=== PATIENT | male | born 1970 | race Caucasian/White ===

== ENCOUNTER 2016-08-14 16:43 | Inpatient (IN) ==
[2016-08-14] MEDS ORDERED: Pantoprazole 40 MG VIAL IVP ONE (17:15)
[2016-08-14 17:44] LABS: Basophils % 0.3 %; Immature Granulocytes % 0.6 % (0-4); Segmented Neutrophils % 76.6 %
[2016-08-14 17:45] LABS: Basophils # 0.1 K/mcL (0.0-0.2); Eosinophils # 0.3 K/mcL (0.0-0.6); Hematocrit 19.4 % (37.5-50.1); Lymphocytes # 2.3 K/mcL (0.6-4.6); Lymphocytes % 15.2 %; Mean Corpuscular HGB Conc 28.4 g/dL (31.6-35.5); Mean Corpuscular Volume 67.1 fL (83.0-100.0); Mean Platelet Volume 9.5 fL (9.4-12.4); Monocytes # 0.8 K/mcL (0.0-1.3); Monocytes % 5.3 %; Neutrophils # 11.8 K/mcL (1.6-8.9); Platelet Count 463 K/mcL (140-400); Red Blood Count 2.89 M/mcL (4.19-5.50); Red Cell Distribution Width 19.8 % (11.5-14.5)
[2016-08-14 17:50] LABS: INR 1.6; Ionized Calcium 1.03 mmol/L (1.15-1.35)
[2016-08-14 17:51] LABS: Hemoglobin 5.5 g/dL (12.9-16.9)
[2016-08-14 17:52] LABS: Activated Partial Thrombo Time 29.9 Seconds (26.0-36.0)
[2016-08-14 17:59] LABS: BUN/Creatinine Ratio 7 (6-26); Blood Urea Nitrogen 6 mg/dL (8-26); Calcium 7.9 mg/dL (8.6-10.8); Carbon Dioxide 26 mEq/L (19-29); Chloride 96 mEq/L (98-109); Glucose 121 mg/dL (70-99); Osmolality,Calculated 281 (280-300); Sodium 136 mEq/L (136-145); eGFR For African Americans > 60 (> 60); eGFR For Non-African Americans > 60 (> 60)
[2016-08-14 18:00] LABS: Ethanol < 10 mg/dL (0-10)
[2016-08-14 18:10] LABS: Hypochromasia Present (Not Present)
[2016-08-14 18:11] LABS: Anisocytosis 2+ (Not Present); Microcytosis Present (Not Present)
--- NOTE | 2016-08-14 18:40 | Emergency Department Note ---
Disposition Clinical Impression: Blood loss anemia, Hypokalemia Disposition: Admitted As Inpatient General Adult HPI - General Chief complaint: ED Recheck/Abnormal Lab/Rx Stated complaint: abnormal labs Time Seen by Provider: 08/14/16 17:10 Source: patient Limitations: no limitations Nursing Notes Reviewed: Yes Vital Signs Reviewed: Yes - History of Present Illness HPI Narrative: Is a 46-year-old male with a history of alcoholism is here for abnormal labs. He sells primary care provider the perform some blood work which showed hypokalemia and anemia. The patient states he has had a gastrointestinal illness the last couple weeks he does drink heavily daily. He denies any nausea vomiting hematemesis. He cannot members had darker stools he might notice some blood per rectum in the past. Pain Scale: 0 Associated symptoms: Reports: malaise, other (Chronic back pain). Denies: confusion, chest pain, cough, diaphoresis, headaches, nausea/vomiting - Related Data Home Medications Medication Instructions Recorded Confirmed Albuterol Sulfate [Albuterol 2 puff IH Q4H PRN 08/14/16 08/14/16 Inhaler] Atorvastatin [Lipitor] 10 mg PO HS 08/14/16 08/14/16 Cefdinir [Omnicef] 300 mg PO BID 08/14/16 08/14/16 Clopidogrel [Plavix] 75 mg PO DAILY 08/14/16 08/14/16 Cyanocobalamin (Vitamin B-12) 500 mcg PO DAILY 08/14/16 08/14/16 [Vitamin B-12] Folic Acid [Folic Acid] 1 mg PO DAILY 08/14/16 08/14/16 Gabapentin [Neurontin] 200 mg PO BID 08/14/16 08/14/16 Guaifenesin [Mucus Relief] 400 mg PO TID PRN 08/14/16 08/14/16 Multivitamin [Multi-Day Vitamins] 1 each PO DAILY 08/14/16 08/14/16 Polyethylene Glycol 3350 [MiraLAX] 17 gm PO DAILY 08/14/16 08/14/16 Potassium Chloride [K-Tab ER] 20 meq PO BID 08/14/16 08/14/16 Allergies Allergy/AdvReac Type Severity Reaction Status Date / Time No Known Allergies Allergy Verified 08/14/16 16:45 All systems ED: reviewed and negative except as stated. Constitutional: Reports: weakness. Denies: fever, chills Cardiovascular: Denies: chest pain, palpitations Past Medical History - Past Medical History Source: patient, old records reviewed, nursing notes reviewed Medical history: Reports: CVA, hypertension Psychiatric history: Reports: no psych history - Social History Smoking Status: Current every day smoker Smokeless Tobacco Status: No Alcohol use: Reports: heavy Drug use: Reports: none Physical Exam - General Limitations: no limitations General appearance: alert, in no apparent distress, other (pale) - Head Head exam: atraumatic, normocephalic, normal inspection - Eye Eye exam: Present: other (pale conjunctivae ) - Expanded Eye Exam Pupils: Left: reactive - ENT ENT exam: normal exam, normal oropharynx, mucous membranes moist - Expanded ENT Exam External ear exam: Present: normal external inspection Mouth exam: Present: normal external inspection Teeth exam: Present: normal inspection Throat exam: Present: normal inspection - Neck Neck exam: Present: normal inspection, full ROM, trachea midline - Chest Chest inspection: Present: normal inspection, symmetric chest wall rise - Respiratory Respiratory exam: Present: normal lung sounds bilaterally - Cardiovascular Cardiovascular exam: Present: regular rate, normal rhythm, normal heart sounds - Abdominal Exam Abdominal exam: Present: soft, Non-Tender, distention - Rectal Exam Rectal exam: Present: normal inspection, normal rectal tone, other (Stool was sent for guaiac but there really was not any stool to obtain just scant amount of yellow feculent material). Absent: black stool, bloody stool, fecal impaction, hemorrhoids, mass, tenderness - Extremities Exam Extremities exam: Present: normal inspection, full ROM. Absent: tenderness, pedal edema - Expanded Upper Extremity Exam Shoulder exam: Present: normal inspection, full ROM Arm exam: Present: normal inspection, full ROM Elbow exam: Present: normal inspection, full ROM Forearm/Wrist exam: Present: normal inspection, full ROM Hand exam: Present: normal inspection, full ROM Vascular exam: Normal: capillary refill, radial pulse - Expanded Lower Extremity Exam Hip/Pelvis exam: Present: normal inspection, full ROM Upper leg exam: Present: normal inspection, full ROM Knee exam: Present: normal inspection, full ROM Lower leg exam: Present: normal inspection, full ROM Ankle exam: Present: normal inspection, full ROM Foot/toe exam: Present: normal inspection, full ROM Neurovascular/Tendon exam: Absent: motor deficit, sensory deficit, tendon deficit - Back Exam Back exam: Present: normal inspection, full ROM. Absent: tenderness - Neurological Exam Neurological exam: Present: alert, oriented X3 - Expanded Neurological Exam Patient oriented to: Present: person, place, time Coma Scale Eye Opening: Spontaneous Coma Scale Motor Response: Obeys Commands Coma Scale Verbal Response: Oriented Coma Scale Total: 15 - Psychiatric Psychiatric exam: Present: normal affect, normal mood - Skin Skin exam: Present: warm, dry, intact, normal color Course Vital Signs Temperature 99.5 F 08/14/16 16:45 Pulse Rate 110 08/14/16 16:45 Respiratory Rate 18 08/14/16 16:45 Blood Pressure 125/79 08/14/16 16:45 O2 Sat by Pulse Oximetry 100 08/14/16 16:45 Temperature 98.9 F 08/14/16 19:17 Pulse Rate 101 08/14/16 19:45 Respiratory Rate 16 08/14/16 19:45 Blood Pressure 104/64 08/14/16 19:45 O2 Sat by Pulse Oximetry 100 08/14/16 19:45 Oxygen Delivery Oxygen Delivery Room Air Medical Decision Making - Lab Data Result diagrams: 08/14/16 17:28 08/14/16 17:28 Lab Results 08/14/16 08/14/16 08/14/16 Range/Units 17:28 17:28 17:28 WBC 15.4 H (4.3-11.1) K/mcL RBC 2.89 L (4.19-5.50) M/mcL Hgb 5.5 L* (12.9-16.9) g/dL Hct 19.4 L (37.5-50.1) % MCV 67.1 L (83.0-100.0) fL MCH 19.0 L (28.0-33.3) pg MCHC 28.4 L (31.6-35.5) g/dL RDW 19.8 H (11.5-14.5) % Plt Count 463 H (140-400) K/mcL MPV 9.5 (9.4-12.4) fL Immature Gran % 0.6 (0-4) % Seg Neutrophils % 76.6 % Lymphocytes % 15.2 % Monocytes % 5.3 % Eosinophils % 2.0 % Basophils % 0.3 % Neutrophils # 11.8 H (1.6-8.9) K/mcL Lymphocytes # 2.3 (0.6-4.6) K/mcL Monocytes # 0.8 (0.0-1.3) K/mcL Eosinophils # 0.3 (0.0-0.6) K/mcL Basophils # 0.1 (0.0-0.2) K/mcL Platelet Estimate Slight increase H (Normal) Hypochromasia Present A (Not Present) Anisocytosis 2+ A (Not Present) Microcytosis Present A (Not Present) PT (9.4-12.1) Seconds INR APTT (26.0-36.0) Seconds Sodium 136 (136-145) mEq/L Potassium 3.0 L (3.5-4.5) mEq/L Chloride 96 L (98-109) mEq/L Carbon Dioxide 26 (19-29) mEq/L BUN 6 L (8-26) mg/dL Creatinine 0.81 (0.72-1.25) mg/dL Est GFR ( Amer) > 60 (> 60) Est GFR (Non-Af Amer) > 60 (> 60) BUN/Creatinine Ratio 7 (6-26) Glucose 121 H (70-99) mg/dL Calculated Osmolality 281 (280-300) Calcium 7.9 L (8.6-10.8) mg/dL Ionized Calcium 1.03 L (1.15-1.35) mmol/L Magnesium (1.6-2.6) mg/dL Ethyl Alcohol < 10 (0-10) mg/dL Blood Type B POSITIVE Antibody Screen NEGATIVE Crossmatch See Detail 08/14/16 08/14/16 Range/Units 17:28 17:28 WBC (4.3-11.1) K/mcL RBC (4.19-5.50) M/mcL Hgb (12.9-16.9) g/dL Hct (37.5-50.1) % MCV (83.0-100.0) fL MCH (28.0-33.3) pg MCHC (31.6-35.5) g/dL RDW (11.5-14.5) % Plt Count (140-400) K/mcL MPV (9.4-12.4) fL Immature Gran % (0-4) % Seg Neutrophils % % Lymphocytes % % Monocytes % % Eosinophils % % Basophils % % Neutrophils # (1.6-8.9) K/mcL Lymphocytes # (0.6-4.6) K/mcL Monocytes # (0.0-1.3) K/mcL Eosinophils # (0.0-0.6) K/mcL Basophils # (0.0-0.2) K/mcL Platelet Estimate (Normal) Hypochromasia (Not Present) Anisocytosis (Not Present) Microcytosis (Not Present) PT 17.0 H (9.4-12.1) Seconds INR 1.6 APTT 29.9 (26.0-36.0) Seconds Sodium (136-145) mEq/L Potassium (3.5-4.5) mEq/L Chloride (98-109) mEq/L Carbon Dioxide (19-29) mEq/L BUN (8-26) mg/dL Creatinine (0.72-1.25) mg/dL Est GFR ( Amer) (> 60) Est GFR (Non-Af Amer) (> 60) BUN/Creatinine Ratio (6-26) Glucose (70-99) mg/dL Calculated Osmolality (280-300) Calcium (8.6-10.8) mg/dL Ionized Calcium (1.15-1.35) mmol/L Magnesium 1.6 (1.6-2.6) mg/dL Ethyl Alcohol (0-10) mg/dL Blood Type Antibody Screen Crossmatch Critical Care Time Critical Care Time: Yes Total Critical Care Time: 40 Attestation: Critical care performed: Time is exclusive of separately billable procedures. Time includes: direct patient care, patient reassessment, coordination of patient care, interpretation of data (laboratory data, radiology data, and respiratory data), review of patient's medical records, medical consultation and documentation of patient care. Procedures included in critical care time: Procedures excluded from critical care time:
[2016-08-14] MEDS ORDERED: 0.9 % Sodium Chloride 500 ML ONE ×2 (18:44→23:07)
[2016-08-14] MEDS ORDERED: *HR* HYDROcodone/Acet 5/325 mg TABLET PO ONE (18:54)
--- NOTE | 2016-08-14 23:11 | Internal Med History&Physical ---
<Sobia Delvalle - Last Filed: 08/15/16 00:28> Date of Encounter: 08/15/16 Time of Encounter: 22:30 Assessment and Plan (1) Blood loss anemia Current visit: Yes Status: Acute upon arrival to ED, his Hg was 5.5. Two units of blood ordered. Stool occult blood was negative, indicating his blood loss is likely chronic. Etiology unclear at this time. Consider esophageal varices, GI bleed as a potential cause in context of patient's chronic alcoholism. monitor CBC Q6HR. check folate, B12 levels, iron profile-pending Lipase pending CHeck cbc,cmp,phosphorous, TSH with morning labs. Consider GI consult for possible EGD/colonoscopy. NPO except meds after midnight. 40mg IV protonix daily. zofran prn for nausea. (2) Hypokalemia Current visit: Yes Status: Acute patient's potassium was 3.0 Patient received 40 mEq of oral potassium in ED Will give another 40 mEq IV potassium now. continue to monitor with repeat bmp with morning labs. (3) Alcohol abuse Current visit: Yes Status: Chronic patient has a history of alcohol abuse for about the past 20 years. He states that he drinks one six pack per night on average, but has been drinking less for the past few weeks because of his abdominal problems. Folate, thiamine supplementation. Patient counseled on importance of alcohol cessation. Continue to monitor. (4) HLD (hyperlipidemia) Current visit: Yes Status: Chronic hold plavix Continue statin Qualifiers: Hyperlipidemia type: unspecified Qualified Code(s): E78.5 - Hyperlipidemia , unspecified (5) DVT prophylaxis Current visit: Yes Status: Acute EPCDs Internal Medicine - H&P: HPI Chief complaint: abnormal labs History of present illness: PCP: Carrie Brooks. Mr. El is a 46 year old male with PMHx of alcoholism, CVA Hx, HTN, DJD, HLD. Patient states that he went to his PCP office today because of stomach problems that he has been having for the past three weeks. He reports having constipation, lower abdominal pain, severe diarrhea, neusea with vomiting about once every few days, decreased appetite. He states that there were a couple of times he may have had blood in his stool and has noticed blood in his stool in the past. He denies hematemesis. He reports chills, denies fever, denies hematuria. He reports some knee pain. His doctor ordered some blood work. When his doctor received the blood work, he was instructed to come to the emergency department. His Hg was 5.5 and potassium was 3. Two units of blood were ordered. Known history of alcoholism. See below. Social Hx: Lives at home with his girlfriend. He has no children. He does not have family in the area and does not have much contact with his family. patient has a known history of alcoholism for about twenty ears. On average, he drinks about a six pack of beer per day. The past few weeks he has been drinking less due to his abdominal problems. His last drink was the night before coming to the Ed, and he drank about half a can of beer at that time. Patient is a current smoker and has been smoking for about twenty five years, 1-3 paks per day. He occasionally takes a vicotin for his knee pain, and he gets that from his friends. Surgical Hx: has had surgery on his left elbow about a year and a half ago at [place]. Family Hx: dad had cancer (does not know what kind) and in his 70s. Mother is alive, has diabetes. He has one brother and two sisters, and does not know if they have any medical problems. Past Med Surg Social Fam HX - Past Medical History Medical history: CVA, hypertension Psychiatric history: no psych history - Social History Smoking Status: Current every day smoker Smokeless Tobacco Status: No Alcohol use: heavy Drug use: none Internal Medicine - H&P: Meds Albuterol Sulfate [Albuterol Inhaler] 2 puff IH Q4H PRN 08/14/16 [History] Atorvastatin [Lipitor] 10 mg PO HS 08/14/16 [History] Cefdinir [Omnicef] 300 mg PO BID 08/14/16 [History] Clopidogrel [Plavix] 75 mg PO DAILY 08/14/16 [History] Cyanocobalamin (Vitamin B-12) [Vitamin B-12] 500 mcg PO DAILY 08/14/16 [History] Folic Acid [Folic Acid] 1 mg PO DAILY 08/14/16 [History] Gabapentin [Neurontin] 200 mg PO BID 08/14/16 [History] Guaifenesin [Mucus Relief] 400 mg PO TID PRN 08/14/16 [History] Multivitamin [Multi-Day Vitamins] 1 each PO DAILY 08/14/16 [History] Polyethylene Glycol 3350 [MiraLAX] 17 gm PO DAILY 08/14/16 [History] Potassium Chloride [K-Tab ER] 20 meq PO BID 08/14/16 [History] Allergies No Known Allergies Allergy (Verified 08/14/16 16:45) All Systems PM: A 10-system review of systems was performed and is negative for pertinent findings except as documented above in the HPI. - Constitutional Constitutional: anorexia, chills, lethargy - EENT Eyes: no change in vision - Cardiovascular Cardiovascular ROS IM: no chest pain - Gastrointestinal Gastrointestinal: abdominal pain, constipation, cramping, diarrhea, melena, no coffee ground emesis - Genitourinary Genitourinary ROS male: no difficulty urinating, no hematuria - Neurological Neurological ROS: no loss of vision - Constitutional Vitals: Temp Pulse Resp BP Pulse Ox 98.1 F 90 16 102/63 96 08/14/16 22:45 08/14/16 22:45 08/14/16 22:45 08/14/16 22:45 08/14/16 22:45 General appearance: Present: A&O X 3, pleasant, answers questions appropriately - Head Head exam: Present: atraumatic, normocephalic - Neck Neck exam general surgery: Present: supple, trachea midline - Respiratory Respiratory exam: Present: rhonchi, wheezes - Cardiovascular Cardiovascular exam: Present: RRR, +S1, +S2 - GI/Abdominal GI/Abdominal exam: Present: distended, normal bowel sounds, tenderness ( tenderness in lower abdomen. ) - Extremities Exam Extremities exam: Absent: cyanotic, pedal edema Additional comments: no cyanosis, edema, or clubbing noted. patient's fingernails have dirt under them. - Psychiatric Psychiatric exam: Present: flat affect Internal Med - H&P Results - Labs CBC & Chem 7: 08/14/16 17:28 08/14/16 17:28 <Khloe Joseph - Last Filed: 08/15/16 13:04> Date of Encounter: 08/14/16 Internal Medicine - H&P: HPI History of present illness: Mr. El is a 46 year old male All Systems PM: A 10-system review of systems was performed and is negative for pertinent findings except as documented above in the HPI. - Constitutional Vitals: Temp Pulse Resp BP Pulse Ox 98.7 F 81 16 101/71 98 08/15/16 12:08 08/15/16 12:08 08/15/16 12:08 08/15/16 12:08 08/15/16 12:08 Internal Med - H&P Results - Labs CBC & Chem 7: 08/15/16 05:27 08/15/16 01:08 Labs: Short CBC 08/15/16 08/15/16 Range/Units 01:08 05:27 WBC 12.1 H 11.0 (4.3-11.1) K/mcL Hgb 5.8 L* 6.3 L (12.9-16.9) g/dL Hct 19.9 L 21.4 L (37.5-50.1) % Plt Count 381 360 (140-400) K/mcL Neutrophils # 8.8 7.9 (1.6-8.9) K/mcL BMP 08/15/16 01:08 Sodium 135 L Potassium 2.6 L Chloride 97 L Carbon Dioxide 26 BUN 6 L Creatinine 0.83 Glucose 106 H Calcium 7.3 L Liver Function 08/15/16 Range/Units 01:08 Total Bilirubin 0.9 (0.2-1.2) mg/dL AST 34 (5-34) Units/L ALT 17 (0-55) Units/L Alkaline Phosphatase 206 H (38-126) Units/L Albumin 1.7 L (3.5-5.0) g/dL - Attending Attestation I examined this patient and my medical decision-making was reviewed with the [employer]/PA/Advanced Practice Nurse/Resident Physician. I agree with the documented findings, disposition and treatment plan as described except to the extent set forth below. I have personally evaluated the pt and discussed with recruitment internship/resident. Pt denies melena / hematochezia. Reports abdominal distension for few weeks. Intermittent leg swelling. Was noted to be anemic based on the labs from his PCP. Microcytic anemia - iron deficiency and possible anemia of chronic disease. Fecal occult blood is negative. Pt had 2 units of PRBC ordered. If the H&H do not increment appropriately, will consider inpatient w/u for anemia - with GI consult and possible upper and lower GI endoscopies. If the H&H increment appropriately and remains stable - can have outpatient w/u. Will cover with IV lasix during PRBC transfusions. Abdominal ultrasound to evaluate for ascites and cirrhosis of liver (Clinically pt seems to have ascites). [facility] protocol.
[2016-08-14] MEDS ORDERED: GuaiFENesin Liq 200 MG/10 ML UDC PO PRN (23:18)
[2016-08-14] MEDS ORDERED: Potassium Chloride Elixir 20 MEQ/15 ML UDC PO ONE (23:25)
[2016-08-14] MEDS ORDERED: Ondansetron 4 MG/2 ML VIAL IVP PRN (23:27)
[2016-08-14] MEDS ORDERED: Acetaminophen 325 MG TABLET PO PRN (23:27)
[2016-08-14] MEDS ORDERED: Naloxone 0.4 MG/ML INJ IVP PRN (23:27)
[2016-08-14] MEDS: Thiamine (B-1) 100 MG TABLET PO SCH (23:36)
[2016-08-14] MEDS: Folic Acid 1 MG TABLET PO SCH (23:36)
[2016-08-15] MEDS ORDERED: *HR* LORazepam 2 MG/ML VIAL IVP PRN (00:14)
[2016-08-15] MEDS ORDERED: Levofloxacin 500 MG/100 ML 500 MG/100 ML BAG IVPB SCH (01:00)
[2016-08-15 01:08] LABS: % Iron Saturation 7 % (20-55); Iron 25 mcg/dL (65-175); Transferrin 240 mg/dL (174-364)
[2016-08-15 01:41] LABS: Folate 16.1 ng/mL (7.0-31.4)
[2016-08-15 01:42] LABS: Vitamin B12 > 2000 pg/mL (213-816)
[2016-08-15 02:43] LABS: Basophils # 0.1 K/mcL (0.0-0.2); Basophils % 0.5 %; Eosinophils # 0.4 K/mcL (0.0-0.6); Hematocrit 19.9 % (37.5-50.1); Immature Granulocytes % 0.4 % (0-4); Lymphocytes # 2.1 K/mcL (0.6-4.6); Lymphocytes % 17.4 %; Mean Corpuscular HGB Conc 29.1 g/dL (31.6-35.5); Mean Corpuscular Hemoglobin 20.4 pg (28.0-33.3); Mean Corpuscular Volume 70.1 fL (83.0-100.0); Mean Platelet Volume 10.2 fL (9.4-12.4); Monocytes # 0.7 K/mcL (0.0-1.3); Monocytes % 6.1 %; Neutrophils # 8.8 K/mcL (1.6-8.9); Nucleated Red Blood Cells 0.2 /100 WBC (0); Platelet Count 381 K/mcL (140-400); Red Blood Count 2.84 M/mcL (4.19-5.50); Red Cell Distribution Width 21.3 % (11.5-14.5); Segmented Neutrophils % 72.6 %
[2016-08-15 02:46] LABS: Hemoglobin 5.8 g/dL (12.9-16.9)
[2016-08-15 02:51] LABS: Alanine Aminotransferase 17 Units/L (0-55); Albumin/Globulin Ratio 0.4 (1.1-2.2); Alkaline Phosphatase 206 Units/L (38-126); Aspartate Amino Transferase 34 Units/L (5-34); BUN/Creatinine Ratio 7 (6-26); Bilirubin,Total 0.9 mg/dL (0.2-1.2); Blood Urea Nitrogen 6 mg/dL (8-26); Calcium 7.3 mg/dL (8.6-10.8); Carbon Dioxide 26 mEq/L (19-29); Chloride 97 mEq/L (98-109); Glucose 106 mg/dL (70-99); Osmolality,Calculated 278 (280-300); Phosphorous 3.6 mg/dL (2.3-4.7); Potassium 2.6 mEq/L (3.5-4.5); Sodium 135 mEq/L (136-145); Total Protein 5.7 g/dL (6.0-8.3); eGFR For African Americans > 60 (> 60); eGFR For Non-African Americans > 60 (> 60)
[2016-08-15 03:05] LABS: Albumin 1.7 g/dL (3.5-5.0)
[2016-08-15 03:29] LABS: Anisocytosis 2+ (Not Present); Hypochromasia Present (Not Present)
[2016-08-15 03:30] LABS: Polychromasia 1+ (Not Present)
[2016-08-15 05:42] LABS: Basophils % 0.4 %; Eosinophils # 0.3 K/mcL (0.0-0.6); Hematocrit 21.4 % (37.5-50.1); Hemoglobin 6.3 g/dL (12.9-16.9); Immature Granulocytes % 0.5 % (0-4); Lymphocytes % 18.5 %; Mean Corpuscular HGB Conc 29.4 g/dL (31.6-35.5); Mean Corpuscular Hemoglobin 20.6 pg (28.0-33.3); Mean Corpuscular Volume 69.9 fL (83.0-100.0); Mean Platelet Volume 9.5 fL (9.4-12.4); Monocytes # 0.6 K/mcL (0.0-1.3); Monocytes % 5.5 %; Neutrophils # 7.9 K/mcL (1.6-8.9); Platelet Count 360 K/mcL (140-400); Red Blood Count 3.06 M/mcL (4.19-5.50); Red Cell Distribution Width 20.7 % (11.5-14.5); Segmented Neutrophils % 72.1 %
[2016-08-15] MEDS ORDERED: Potassium Chloride 40 MEQ, Lidocaine 1% 2 ML in D5% in Water 500 ML IVPB ONE (09:00)
[2016-08-15] MEDS: Vitamin B Complex/Vit C/Vit E 1 EACH TABLET PO SCH (09:11)
[2016-08-15] MEDS: Folic Acid 1 MG TABLET PO SCH (09:11)
[2016-08-15] MEDS: Thiamine (B-1) 100 MG TABLET PO SCH (09:11)
[2016-08-15] MEDS: Gabapentin 100 MG CAPSULE PO SCH ×2 (09:12→20:18)
[2016-08-15] MEDS: Pantoprazole 40 MG VIAL IVP SCH (09:12)
[2016-08-15] MEDS: Nicotine 21 MG PATCH.TD24 TD SCH ×2 (09:12→17:11)
[2016-08-15] MEDS: Iron Sucrose Complex 200 MG in 0.9 % Sodium Chloride 100 ML IVPB SCH (10:04)
[2016-08-15] MEDS ORDERED: 0.9 % Sodium Chloride 500 ML ONE (10:39)
--- NOTE | 2016-08-15 11:19 | Event Note ---
Date of Encounter: 08/15/16 Time of Encounter: 10:45 Spoke with attending, reviewed history and labs. Plan for EGD and colonoscopy tomorrow. Clear liquid diet today, no red or purple. NPO at midnight. If unable tolerate NuLytely please use MiraLAX prep. If not clear by 6 AM, give 2 tap water enemas. Full consult tomorrow.
[2016-08-15] MEDS ORDERED: Furosemide 20 MG/2 ML VIAL IVP ONE (12:55)
[2016-08-15] MEDS: Sennosides/Docusate Sodium TABLET PO SCH ×2 (15:00→20:18)
--- NOTE | 2016-08-15 15:52 | Internal Med Progress Note ---
Date of Encounter: 08/15/16 Time of Encounter: 15:50 - Assessment and plan (1) Anemia Current Visit: Yes Status: Acute Assessment and plan: upon arrival to ED, his Hg was 5.5. last hb on 10/2015 was 14, s/p Two units of prbc , now is 6.3. he gives h/o bloody diarrhea 3 weeks ago that has resolved. Stool occult blood now is negative,low MCV, low iron and tsat. b12 and folate ok, TSH normal. will start iron sucrose for iron deficiency, r/o GI bleed, denies previous EGD , denies h/o hematemesis or thu, will undergo EGD/colon tomm. GI has been consulted NPO except meds after midnight. 40mg IV protonix daily. zofran prn for nausea Qualifiers: Anemia type: iron deficiency Qualified Code(s): D50.0 - Iron deficiency anemia secondary to blood loss (chronic) (2) DVT prophylaxis Current Visit: Yes Status: Acute (3) Hypokalemia Current Visit: Yes Status: Acute Assessment and plan: will supplement with IV and oral potassium. Recheck today. (4) Alcohol abuse Current Visit: Yes Status: Chronic Assessment and plan: We will watch for alcohol withdrawal, currently does not have any signs of withdrawal at this time. Under [facility] protocol. (5) HLD (hyperlipidemia) Current Visit: Yes Status: Chronic Qualifiers: Hyperlipidemia type: unspecified Qualified Code(s): E78.5 - Hyperlipidemia , unspecified - Time Spent With Patient 25 - 35 minutes - Subjective Interval history: Patient admitted for severe anemia, status post transfusion 2 units of PRBC. Seen at the bedside this morning, denies any abdominal pain, nausea or vomiting , denies any hematemesis or melena. Chronic alcoholic, has never seen a GI doctor, never had EGD or colonoscopy in the past. Reports history of blood in the stool with diarrhea 3 weeks ago when he was treated outside with supportive treatment ( anti emetics along with Imodium, no antibiotics) following which he developed constipation. GI has been consulted. Has no signs of withdrawal. - Constitutional Vitals: Temp Pulse Resp BP Pulse Ox 98.6 F 84 16 118/78 97 08/15/16 14:55 08/15/16 14:55 08/15/16 14:55 08/15/16 14:55 08/15/16 14:55 General appearance: Present: A&O X 3, pleasant, answers questions appropriately Exam: General appearance: Present: A&O X 3, pleasant, answers questions appropriately - Head Head exam: Present: atraumatic, normocephalic - Neck Neck exam general surgery: Present: supple, trachea midline - Respiratory Respiratory exam: Present: rhonchi, wheezes - Cardiovascular Cardiovascular exam: Present: RRR, +S1, +S2 - GI/Abdominal GI/Abdominal exam: Present: distended, normal bowel sounds, non tender. - Extremities Exam Extremities exam: Absent: cyanotic, pedal edema Additional comments: no cyanosis, edema, or clubbing noted. patient's fingernails have dirt under them. Internal Medicine: Result - Labs CBC & Chem 7: 08/15/16 05:27 08/15/16 01:08 Labs: Short CBC 08/15/16 08/15/16 Range/Units 01:08 05:27 WBC 12.1 H 11.0 (4.3-11.1) K/mcL Hgb 5.8 L* 6.3 L (12.9-16.9) g/dL Hct 19.9 L 21.4 L (37.5-50.1) % Plt Count 381 360 (140-400) K/mcL Neutrophils # 8.8 7.9 (1.6-8.9) K/mcL BMP 08/15/16 01:08 Sodium 135 L Potassium 2.6 L Chloride 97 L Carbon Dioxide 26 BUN 6 L Creatinine 0.83 Glucose 106 H Calcium 7.3 L Liver Function 08/15/16 Range/Units 01:08 Total Bilirubin 0.9 (0.2-1.2) mg/dL AST 34 (5-34) Units/L ALT 17 (0-55) Units/L Alkaline Phosphatase 206 H (38-126) Units/L Albumin 1.7 L (3.5-5.0) g/dL - ABG Interpretation ABG results: PT/INR, D-dimer PT 17.0 Seconds (9.4-12.1) H 08/14/16 17:28 - VTE Documentation of Mechanical Device: Intermittent pneumatic compression device Consult Discharge Plan - Plan Referrals: Estella Arteaga, MACHINE SANDER [Primary Care Provider] -
[2016-08-15] MEDS ORDERED: SODIUM CHLORIDE/NAHCO3/KCL/PEG 4,000 ML SOLN.RECON PO ONE (17:00)
[2016-08-15] MEDS: Potassium Chloride Elixir 20 MEQ/15 ML UDC PO SCH ×2 (17:35→22:58)
[2016-08-15 18:49] LABS: Basophils % 0.3 %; Eosinophils # 0.3 K/mcL (0.0-0.6); Hematocrit 28.5 % (37.5-50.1); Immature Granulocytes % 0.4 % (0-4); Lymphocytes % 14.9 %; Mean Corpuscular HGB Conc 30.9 g/dL (31.6-35.5); Mean Corpuscular Hemoglobin 22.1 pg (28.0-33.3); Mean Corpuscular Volume 71.6 fL (83.0-100.0); Mean Platelet Volume 9.5 fL (9.4-12.4); Monocytes # 0.6 K/mcL (0.0-1.3); Monocytes % 4.5 %; Neutrophils # 10.3 K/mcL (1.6-8.9); Platelet Count 390 K/mcL (140-400); Red Blood Count 3.98 M/mcL (4.19-5.50); Red Cell Distribution Width 20.4 % (11.5-14.5); Segmented Neutrophils % 77.9 %
[2016-08-15 18:50] LABS: Hemoglobin 8.8 g/dL (12.9-16.9)
[2016-08-15 18:59] LABS: BUN/Creatinine Ratio 5 (6-26); Blood Urea Nitrogen 4 mg/dL (8-26); Calcium 7.4 mg/dL (8.6-10.8); Carbon Dioxide 24 mEq/L (19-29); Chloride 95 mEq/L (98-109); Glucose 110 mg/dL (70-99); Osmolality,Calculated 270 (280-300); Potassium 3.3 mEq/L (3.5-4.5); Sodium 131 mEq/L (136-145); eGFR For African Americans > 60 (> 60); eGFR For Non-African Americans > 60 (> 60)
[2016-08-16 06:15] LABS: BUN/Creatinine Ratio 6 (6-26); Calcium 7.8 mg/dL (8.6-10.8); Carbon Dioxide 26 mEq/L (19-29); Chloride 96 mEq/L (98-109); Glucose 94 mg/dL (70-99); Osmolality,Calculated 271 (280-300); Potassium 3.5 mEq/L (3.5-4.5); Sodium 132 mEq/L (136-145); eGFR For African Americans > 60 (> 60); eGFR For Non-African Americans > 60 (> 60)
[2016-08-16 06:16] LABS: Blood Urea Nitrogen 4 mg/dL (8-26)
[2016-08-16 08:37] LABS: Basophils # 0.1 K/mcL (0.0-0.2); Basophils % 0.5 %; Eosinophils # 0.5 K/mcL (0.0-0.6); Eosinophils % 3.1 %; Hematocrit 30.1 % (37.5-50.1); Hemoglobin 9.2 g/dL (12.9-16.9); Immature Granulocytes % 0.4 % (0-4); Lymphocytes # 2.1 K/mcL (0.6-4.6); Lymphocytes % 13.6 %; Mean Corpuscular HGB Conc 30.6 g/dL (31.6-35.5); Mean Corpuscular Hemoglobin 22.1 pg (28.0-33.3); Mean Corpuscular Volume 72.4 fL (83.0-100.0); Mean Platelet Volume 9.8 fL (9.4-12.4); Monocytes # 0.7 K/mcL (0.0-1.3); Monocytes % 4.6 %; Neutrophils # 11.9 K/mcL (1.6-8.9); Platelet Count 399 K/mcL (140-400); Red Blood Count 4.16 M/mcL (4.19-5.50); Segmented Neutrophils % 77.8 %
--- NOTE | 2016-08-16 11:37 | Gastroenterology Consult Note ---
<Cam Conti - Last Filed: 08/16/16 11:34> Date of Encounter: 08/16/16 Time of Encounter: 11:15 - Assessment and plan (1) Anemia Current Visit: Yes Status: Acute Assessment and plan: Continue to monitor CBC and transfuse PRBC as needed. Plan for EGD and colonoscopy today. Qualifiers: Anemia type: iron deficiency Qualified Code(s): D50.0 - Iron deficiency anemia secondary to blood loss (chronic) (2) Alcohol abuse Current Visit: Yes Status: Chronic Assessment and plan: Pt drinking a six pack of beer per day. Abdomen distended, consulted IR for paracentesis, send fluid for cell studies and cytology. Complete liver work up and RUQ US to r/o cirrhosis. LFTs are WNL. - Time Spent With Patient Total time spent is greater than 50% in coordination of care (as documented) at patient's floor/unit and/or counseling patient: GI History of Present Illness - Data of Consult Patient: new to practice Consult date: 08/16/16 Requesting Physician: Agustina Gandara - Consult Narrative Reason for consult: Anemia, chronic alcoholic History of present illness: Mr. El is a 46 year old male with PMHX of CVA, HTN, HLD, alcoholism who came to the ED after presenting to his PCP office with c/o constipation, diarrhea, lower abdominal pain, nausea, and vomiting. He also reports BRBPR about 3 weeks ago. He was having diarrhea 3 weeks ago, and after taking Imodium he developed constipation. His PCP ordered labs which revealed Hgb 5.4, and he was instructed to come to the ED. He has received 4 units PRBC and Hgb yesterday was 8.8. FOBT was negative. He has a history of alcohol abuse for about 20 years. He is drinking a six pack of beer per day. His LFTs are WNL. We were consulted due to anemia. Paracentesis completed this AM, and pt states he feels "much better". Procedures: None NSAIDs: None Anticoagulation: Plavix Past Med Surg Social Fam HX - Past Medical History Medical history: CVA, hypertension Psychiatric history: no psych history - Social History Smoking Status: Current every day smoker Smokeless Tobacco Status: No Alcohol use: heavy Drug use: none - Gastrointestinal Gastrointestinal: Present: as per HPI - Constitutional Constitutional: as per HPI - EENT Eyes: as per HPI Ears: Present: as per HPI Nose, mouth and throat: Present: as per HPI - Cardiovascular Cardiovascular ROS: Present: as per HPI - Respiratory Respiratory IM: Present: as per HPI - Genitourinary Genitourinary: Absent: change in color, Urinary frequency - Neurological ROS Neurological GI: Present: as per HPI - Hematologic/Lymphatic Hematologic/Lymphatic pediatric: Present: as per HPI - Musculoskeletal Musculoskeletal ROS GI: Present: as per HPI - Integumentary Integumentary GI: Present: as per HPI - Psychiatric ROS Psychiatric GI: Present: as per HPI - Endocrine Endocrine IM: Present: as per HPI - Constitutional Vitals: Temp Pulse Resp BP Pulse Ox 98.3 F 73 16 116/76 97 08/16/16 11:01 08/16/16 11:01 08/16/16 11:01 08/16/16 11:01 08/16/16 11:01 General appearance: Present: cooperative, A&O X 3, no acute distress, answers questions appropriately - Head Head exam: Present: atraumatic, normocephalic - Eye Eye exam: Present: normal appearance, sclera anicteric - ENT ENT exam: Present: mucous membranes dry - Neck Neck exam general surgery: Present: normal inspection, trachea midline - Respiratory Respiratory exam: Present: rhonchi, wheezes - Cardiovascular Cardiovascular exam: Present: RRR, +S1, +S2 - GI/Abdominal GI/Abdominal exam: Present: distended (slightly), soft, no peritoneal signs. Absent: firm, guarding, tenderness - Rectal Rectal exam: Present: deferred - Extremities Exam Extremities exam: Present: warm - Neurological Exam Neurological exam: Present: no focal deficits - Psychiatric Psychiatric exam: Present: normal affect, normal mood - Skin Skin exam: Present: dry, intact, normal color, warm Results - Labs CBC & Chem 7: 08/16/16 05:43 08/16/16 05:43 Labs: Last Result Calcium 7.8 mg/dL (8.6-10.8) L 08/16/16 05:43 Iron 25 mcg/dL (65-175) L 08/14/16 17:28 % Saturation 7 % (20-55) L 08/14/16 17:28 Transferrin 240 mg/dL (174-364) 08/14/16 17:28 Vitamin B12 > 2000 pg/mL (213-816) H 08/14/16 17:28 Folate 16.1 ng/mL (7.0-31.4) 08/14/16 17:28 Stool Occult Blood Negative (Negative) 08/14/16 20:30 Entire Visit Hgb 9.2 g/dL (12.9-16.9) L 08/16/16 05:43 Hct 30.1 % (37.5-50.1) L 08/16/16 05:43 PT 17.0 Seconds (9.4-12.1) H 08/14/16 17:28 Total Bilirubin 0.9 mg/dL (0.2-1.2) 08/15/16 01:08 AST 34 Units/L (5-34) 08/15/16 01:08 ALT 17 Units/L (0-55) 08/15/16 01:08 Lipase 37 Units/L (8-78) 08/15/16 01:08 Folate 16.1 ng/mL (7.0-31.4) 08/14/16 17:28 - ABG ABG results: PT/INR, D-dimer PT 17.0 Seconds (9.4-12.1) H 08/14/16 17:28 - Impressions Impressions Abdomen Ultrasound 08/16/16 09:00 IMPRESSION: 1. Hepatomegaly with steatosis. Smooth liver capsule. 2. Nonspecific gallbladder wall thickening measuring up to 8 mm, likely related to underlying liver disease versus volume status. No cholelithiasis. 3. Small volume ascites. D/ / Ramona Case MD / Ramona Case MD Interpreting Provider: Ramona Case MD Consult Discharge Plan - Plan Referrals: Estella Arteaga, WEB DEVELOPMENT DIRECTOR [Primary Care Provider] - 08/23/16 1:15 pm (Please follow up on Aug.23 at 1:15pm. Your appointment for has been cancelled and combined with your Aug.23 appointment. If you have any questions please call your PCP at any time. Thank you! ) <Collins Ford - Last Filed: 08/16/16 17:44> Time of Encounter: 13:00 - Time Spent With Patient Total time spent is greater than 50% in coordination of care (as documented) at patient's floor/unit and/or counseling patient: GI History of Present Illness - Data of Consult Requesting Physician: Agustina Gandara - Consult Narrative History of present illness: Mr. El is a 46 year old male - Constitutional Vitals: Temp Pulse Resp BP Pulse Ox 98.4 F 88 18 108/66 95 08/16/16 16:45 08/16/16 16:45 08/16/16 16:45 08/16/16 16:45 08/16/16 16:45 Results - Labs CBC & Chem 7: 08/16/16 05:43 08/16/16 05:43 Labs: Last Result Calcium 7.8 mg/dL (8.6-10.8) L 08/16/16 05:43 Iron 25 mcg/dL (65-175) L 08/14/16 17:28 % Saturation 7 % (20-55) L 08/14/16 17:28 Transferrin 240 mg/dL (174-364) 08/14/16 17:28 Vitamin B12 > 2000 pg/mL (213-816) H 08/14/16 17:28 Folate 16.1 ng/mL (7.0-31.4) 08/14/16 17:28 Peritoneal Appearance CLEAR (Clear) 08/16/16 08:15 Peritoneal Volume 35.0 mL 08/16/16 08:15 Peritoneal RBC < 0.002 M/mcL (0.000-0.002) 08/16/16 08:15 Periton Tot Nuc Cells 104 TNC/mcL (0-300) 08/16/16 08:15 Periton Band Neuts Test Not Performed 08/16/16 08:15 Periton Lymphocytes % 30.0 % 08/16/16 08:15 Periton Monocytes % Test Not Performed 08/16/16 08:15 Periton Other Cells % 59.0 % 08/16/16 08:15 Stool Occult Blood Negative (Negative) 08/14/16 20:30 Entire Visit Hgb 9.2 g/dL (12.9-16.9) L 08/16/16 05:43 Hct 30.1 % (37.5-50.1) L 08/16/16 05:43 PT 18.5 Seconds (9.4-12.1) H 08/16/16 11:39 Total Bilirubin 1.2 mg/dL (0.2-1.2) 08/16/16 11:39 AST 38 Units/L (5-34) H 08/16/16 11:39 ALT 16 Units/L (0-55) 08/16/16 11:39 Lipase 37 Units/L (8-78) 08/15/16 01:08 Folate 16.1 ng/mL (7.0-31.4) 08/14/16 17:28 - ABG ABG results: PT/INR, D-dimer PT 18.5 Seconds (9.4-12.1) H 08/16/16 11:39 - Impressions Impressions Paracentesis Ultrasound 08/16/16 00:00 IMPRESSION: Successful ultrasound guided paracentesis. D/ / Ryan Hooker MD / Ryan Hooker MD Interpreting Provider: Ryan Hooker MD Abdomen Ultrasound 08/16/16 09:00 IMPRESSION: 1. Hepatomegaly with steatosis. Smooth liver capsule. 2. Nonspecific gallbladder wall thickening measuring up to 8 mm, likely related to underlying liver disease versus volume status. No cholelithiasis. 3. Small volume ascites. D/ / 08/16/2016 11:39:40 Ramona Case MD / loly Interpreting Provider: Ramona Case MD - Attending Attestation I examined this patient and my medical decision-making was reviewed with the [employer] CONSULTANT/PA/Advanced Practice Nurse/Resident Physician. I agree with the documented findings, disposition and treatment plan as described except to the extent set forth below.
[2016-08-16 11:54] LABS: INR 1.7; Prothrombin Time 18.5 Seconds (9.4-12.1)
[2016-08-16 12:02] LABS: Albumin/Globulin Ratio 0.4 (1.1-2.2); Bilirubin,Direct 0.7 mg/dL (0.0-0.5); Bilirubin,Indirect 0.5 mg/dL (0.0-1.2); Bilirubin,Total 1.2 mg/dL (0.2-1.2); Globulin 4.5 g/dL (2.4-3.5); Total Protein 6.3 g/dL (6.0-8.3)
[2016-08-16 12:04] LABS: Albumin 1.8 g/dL (3.5-5.0)
[2016-08-16] MEDS: Folic Acid 1 MG TABLET PO SCH (13:31)
[2016-08-16] MEDS: Gabapentin 100 MG CAPSULE PO SCH ×2 (13:31→20:25)
[2016-08-16] MEDS: Nicotine 21 MG PATCH.TD24 TD SCH (13:35)
[2016-08-16] MEDS: Potassium Chloride Elixir 20 MEQ/15 ML UDC PO SCH ×2 (13:36→20:25)
[2016-08-16] MEDS: Sennosides/Docusate Sodium TABLET PO SCH ×2 (13:36→20:25)
[2016-08-16] MEDS: Pantoprazole 40 MG VIAL IVP SCH (13:36)
[2016-08-16] MEDS: Vitamin B Complex/Vit C/Vit E 1 EACH TABLET PO SCH (13:37)
[2016-08-16] MEDS: Iron Sucrose Complex 200 MG in 0.9 % Sodium Chloride 100 ML IVPB SCH (13:39)
[2016-08-16] MEDS: Thiamine (B-1) 100 MG TABLET PO SCH (13:44)
[2016-08-16] MEDS ORDERED: Propofol 500 MG/50 ML INFUS..BTL ONE (14:01)
[2016-08-16] MEDS ORDERED: Albuterol 2.5 MG/3 ML NEBULIZER ONE (14:12)
[2016-08-16] MEDS ORDERED: Albuterol 2.5 MG/3 ML NEBULIZER IH ONE (14:16)
--- NOTE | 2016-08-16 14:16 | Anesthesia Evaluation PreOp ---
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 History: CVA (no residual deficits) Other Medical History: Other (paracentesis 3.1L's) Anesthesia History: No Prior Anesthetic Complications, Past Anesthesia Alcohol Use: heavy Drug use: none Medications and Allergies Albuterol Sulfate [Albuterol Inhaler] 2 puff IH Q4H PRN 08/14/16 [History] Atorvastatin [Lipitor] 10 mg PO HS 08/14/16 [History] Cefdinir [Omnicef] 300 mg PO BID 08/14/16 [History] Clopidogrel [Plavix] 75 mg PO DAILY 08/14/16 [History] Cyanocobalamin (Vitamin B-12) [Vitamin B-12] 500 mcg PO DAILY 08/14/16 [History] Folic Acid [Folic Acid] 1 mg PO DAILY 08/14/16 [History] Gabapentin [Neurontin] 200 mg PO BID 08/14/16 [History] Guaifenesin [Mucus Relief] 400 mg PO TID PRN 08/14/16 [History] Multivitamin [Multi-Day Vitamins] 1 each PO DAILY 08/14/16 [History] Polyethylene Glycol 3350 [MiraLAX] 17 gm PO DAILY 08/14/16 [History] Potassium Chloride [K-Tab ER] 20 meq PO BID 08/14/16 [History] Allergies No Known Allergies Allergy (Verified 08/14/16 16:45) - Meds/Allergy Pre-op Review Medications Reviewed: Yes Allergies Reviewed: Yes Beta Blockers on Current Med List: No Anesthesia Results - Labs 08/16/16 05:43 08/16/16 05:43 - Imaging EKG: report reviewed (12/04 sr) Anesthesia Exam Vital Signs/O2 Sat/Glucose, Most Current Temp Pulse Resp BP Pulse Ox 08/16/16 14:09 78 18 108/72 96 08/16/16 11:01 98.3 F 73 16 116/76 97 Height: 1.83 Weight: 88 NPO (# of Hours): >8 - HEENT Pupil (Motor): Pupils equal, EOMI Mallampati: I Teeth: Edentulous Oral Opening: Greater than 3 - SPLIT LEATHER MOSSER LOC: Oriented SPLIT LEATHER MOSSER Motor: Normal RUE, Normal LUE, Normal RLE, Normal LLE, Normal Face SPLIT LEATHER MOSSER Sensory: Normal: RUE, LUE, RLE, LLE, Face - Cardiac Rhythm: Regular Murmur: None - Pulmonary Breath Sounds: left Clear, right Rhonchi Respiratory Effort: Symmetrical Anesthesia Assess/Plan ASA Score: 2 Modified Mason Scale for Level of Consciousness: Cooperative, oriented, and tranquil Anesthetic Plan: MAC Monitoring Plan: Standard Monitors Recovery Plan: Other
[2016-08-16 15:22] LABS: RBC,Peritoneal Fluid < 0.002 M/mcL
[2016-08-16 16:35] LABS: Appearance of Peritoneal Fl CLEAR (Clear)
--- NOTE | 2016-08-16 17:16 | Internal Med Progress Note ---
Date of Encounter: 08/16/16 Time of Encounter: 17:14 - Assessment and plan (1) Blood loss anemia Current Visit: Yes Status: Acute Assessment and plan: Acute blood loss anemia. Patient presented with blood in his stools and a hemoglobin of 5.5. He was transfused 4 units of packed red blood cells (last unit 08/15). Recheck hemoglobin in the morning and if stable and the patient remains hemodynamically stable, I will discharge patient home. (2) GI bleed Current Visit: Yes Status: Acute Assessment and plan: Patient underwent EGD showing gastritis and erythematous doing adenopathy. Biopsies taken. Colonoscopy revealed nonbleeding polyps and internal hemorrhoids. No signs of external bleeding. We will continue to monitor hemoglobin. Qualifiers: GI bleed type/associated pathology: gastritis Gastritis type: unspecified gastritis Qualified Code(s): K29.71 - Gastritis, unspecified, with bleeding (3) Ascites Current Visit: Yes Status: Acute Assessment and plan: Patient underwent paracentesis with removal of 3.1 L of ascitic fluid. No SBP. Awaiting cytology, culture and albumin levels in ascitic fluid. Qualifiers: Ascites type: other type Qualified Code(s): R18.8 - Other ascites (4) Hypokalemia Current Visit: Yes Status: Acute Assessment and plan: Corrected. (5) Alcohol abuse Current Visit: Yes Status: Chronic Assessment and plan: Continue CIWA protocol. Patient is agreeable to quit alcohol use. We will provide him with information for detox centers. - Subjective Interval history: patient had paracentesis, colonoscopy and EGD today. no bleeding. he is ambulating to the bathroom without any issues. he is willing to quit alcohol. - Constitutional Vitals: Temp Pulse Resp BP Pulse Ox 98.6 F 93 16 103/71 94 L 08/16/16 16:15 08/16/16 16:15 08/16/16 16:15 08/16/16 16:15 08/16/16 16:15 General appearance: Present: cooperative, A&O X 3, pleasant, no acute distress, answers questions appropriately - Eye Eye exam: Present: PERRL, sclera anicteric - Neck Neck exam general surgery: Present: supple, trachea midline. Absent: lymphadenopathy - Respiratory Respiratory exam: Present: CTAB - Cardiovascular Cardiovascular exam: Present: RRR. Absent: systolic murmur - GI/Abdominal GI/Abdominal exam: Present: distended, normal bowel sounds, soft. Absent: tenderness - Extremities Exam Extremities exam: Absent: pedal edema - Back Exam Back exam: Absent: CVA tenderness (L), CVA tenderness (R) - Neurological Exam Neurological exam: Present: alert, oriented X3, no focal deficits. Absent: facial droop, speech deficit - Skin Skin exam: Absent: rash Internal Medicine: Result - Labs CBC & Chem 7: 08/16/16 05:43 08/16/16 05:43 Labs: Short CBC 08/15/16 08/16/16 Range/Units 18:27 05:43 WBC 13.2 H 15.3 H (4.3-11.1) K/mcL Hgb 8.8 L D 9.2 L (12.9-16.9) g/dL Hct 28.5 L 30.1 L (37.5-50.1) % Plt Count 390 399 (140-400) K/mcL Neutrophils # 10.3 H 11.9 H (1.6-8.9) K/mcL BMP 08/15/16 08/16/16 18:27 05:43 Sodium 131 L 132 L Potassium 3.3 L 3.5 Chloride 95 L 96 L Carbon Dioxide 24 26 BUN 4 L 4 L Creatinine 0.77 0.72 Glucose 110 H 94 Calcium 7.4 L 7.8 L Liver Function 08/16/16 Range/Units 11:39 Total Bilirubin 1.2 (0.2-1.2) mg/dL Direct Bilirubin 0.7 H (0.0-0.5) mg/dL AST 38 H (5-34) Units/L ALT 16 (0-55) Units/L Alkaline Phosphatase 206 H (38-126) Units/L Albumin 1.8 L (3.5-5.0) g/dL - ABG Interpretation ABG results: PT/INR, D-dimer PT 18.5 Seconds (9.4-12.1) H 08/16/16 11:39 - Impressions Impressions Paracentesis Ultrasound 08/16/16 00:00 IMPRESSION: Successful ultrasound guided paracentesis. D/ / Ryan Hooker MD / Ryan Hooker MD Interpreting Provider: Ryan Hooker MD Abdomen Ultrasound 08/16/16 09:00 IMPRESSION: 1. Hepatomegaly with steatosis. Smooth liver capsule. 2. Nonspecific gallbladder wall thickening measuring up to 8 mm, likely related to underlying liver disease versus volume status. No cholelithiasis. 3. Small volume ascites. D/ / 08/16/2016 11:39:40 Ramona Case MD / loly Interpreting Provider: Ramona Case MD - VTE Documentation of Mechanical Device: Intermittent pneumatic compression device Consult Discharge Plan - Plan Referrals: Estella Arteaga CNP [Primary Care Provider] - 08/23/16 1:15 pm (Please follow up on Aug.23 at 1:15pm. Your appointment for has been cancelled and combined with your Aug.23 appointment. If you have any questions please call your PCP at any time. Thank you! )
[2016-08-17 06:18] LABS: Basophils # 0.1 K/mcL (0.0-0.2); Basophils % 0.4 %; Eosinophils # 0.5 K/mcL (0.0-0.6); Eosinophils % 2.8 %; Hemoglobin 8.7 g/dL (12.9-16.9); Immature Granulocytes % 0.4 % (0-4); Lymphocytes # 2.6 K/mcL (0.6-4.6); Lymphocytes % 14.4 %; Mean Corpuscular HGB Conc 31.1 g/dL (31.6-35.5); Mean Corpuscular Hemoglobin 22.4 pg (28.0-33.3); Mean Corpuscular Volume 72.2 fL (83.0-100.0); Monocytes % 5.2 %; Neutrophils # 13.9 K/mcL (1.6-8.9); Nucleated Red Blood Cells 0.1 /100 WBC (0); Platelet Count 403 K/mcL (140-400); Red Blood Count 3.88 M/mcL (4.19-5.50); Red Cell Distribution Width 22.6 % (11.5-14.5); Segmented Neutrophils % 76.8 %
[2016-08-17 06:32] LABS: Alanine Aminotransferase 15 Units/L (0-55); Albumin/Globulin Ratio 0.4 (1.1-2.2); Alkaline Phosphatase 194 Units/L (38-126); Aspartate Amino Transferase 36 Units/L (5-34); BUN/Creatinine Ratio 5 (6-26); Bilirubin,Total 1.1 mg/dL (0.2-1.2); Calcium 7.7 mg/dL (8.6-10.8); Carbon Dioxide 23 mEq/L (19-29); Chloride 98 mEq/L (98-109); Globulin 4.2 g/dL (2.4-3.5); Glucose 85 mg/dL (70-99); Magnesium 1.5 mg/dL (1.6-2.6); Osmolality,Calculated 268 (280-300); Phosphorous 3.4 mg/dL (2.3-4.7); Potassium 3.7 mEq/L (3.5-4.5); Sodium 131 mEq/L (136-145); Total Protein 5.9 g/dL (6.0-8.3); eGFR For African Americans > 60 (> 60); eGFR For Non-African Americans > 60 (> 60)
[2016-08-17 06:34] LABS: Albumin 1.7 g/dL (3.5-5.0); Blood Urea Nitrogen 4 mg/dL (8-26)
[2016-08-17] MEDS ORDERED: Furosemide 20 MG TABLET PO PRN (08:36)
--- NOTE | 2016-08-17 09:15 | Gastroenterology Progress Note ---
<Cam Conti - Last Filed: 08/17/16 10:22> Date of Encounter: 08/17/16 Time of Encounter: 09:50 - Assessment and plan (1) Anemia Current Visit: Yes Status: Acute Assessment and plan: Continue to monitor CBC and transfuse PRBC as needed. Colonoscopy with 2 polyps (pathology pending) and internal hemorrhoids. EGD showed gastritis and duodenopathy. Iron low at 25 on admission, recommend IV iron. Follow up with GI as outpatient in 3 weeks. Obtain CBC and iron profile prior to appointment. Qualifiers: Anemia type: iron deficiency Qualified Code(s): D50.9 - Iron deficiency anemia, unspecified (2) Alcohol abuse Current Visit: Yes Status: Chronic Assessment and plan: Pt drinking a six pack of beer per day. Paracentesis completed, fluid sent for cell studies and cytology. Liver work up in process. RUQ US showed hepatic steatosis. Recommend 1. Total abstinence from alcohol including social drinking. 2. No smoking 3. Gradual loss of weight 4. Drink at least 3 cups of coffee due to its antioxidant effects in the liver, it reduces risk of HCC and advance fibrosis 5. If needed, use less than 2 g/day of Tylenol (in divided doses). 6. Vaccination for Hep A, B, Pneumococcus if not already received and yearly influenza vaccination by PCP 7. Avoid NSAIDS as can cause kidney damage 8. Avoid benzodiazepines and other sedatives such as anti-histamines, narcotics etc. as can cause encephalopathy or confusion 9. Take a late carbohydrate meal supplement as it reduces glucose production from protein breakdown and thus improves nutrition. 10. In cirrhosis, statins are safe to use and also improve portal hypertension and decrease risk of HCC. (3) Ascites Current Visit: Yes Status: Acute Assessment and plan: Paracentesis completed, fluid studies pending. Will start low-dose diuretics, Aldactone 50 mg daily and Lasix 20 mg daily. Qualifiers: Ascites type: other type Qualified Code(s): R18.8 - Other ascites - Time Spent With Patient Total time spent is greater than 50% in coordination of care (as documented) at patient's floor/unit and/or counseling patient: - Subjective Interval history: Pt reports feeling better today. EGD and colonoscopy completed yesterday, no bleeding noted. He states he is ready to quit drinking alcohol. - Constitutional Vitals: Temp Pulse Resp BP Pulse Ox 98.3 F 98 18 103/73 90 L 08/17/16 08:26 08/17/16 08:26 08/17/16 08:26 08/17/16 08:26 08/17/16 08:26 General appearance: Present: cooperative, A&O X 3, no acute distress, answers questions appropriately - Head Head exam: Present: atraumatic, normocephalic - Eye Eye exam: Present: normal appearance, sclera anicteric - ENT ENT exam: Present: mucous membranes moist - Neck Neck exam general surgery: Present: normal inspection, trachea midline - Respiratory Respiratory exam: Present: rhonchi (bilateral) - Cardiovascular Cardiovascular exam: Present: RRR, +S1, +S2 - GI/Abdominal GI/Abdominal exam: Present: distended, soft, no peritoneal signs. Absent: firm , guarding, tenderness - Rectal Rectal exam: Present: deferred - Extremities Exam Extremities exam: Present: warm - Neurological Exam Neurological exam: Present: no focal deficits - Psychiatric Psychiatric exam: Present: normal affect, normal mood - Skin Skin exam: Present: dry, intact, normal color, warm Results - Labs CBC & Chem 7: 08/17/16 05:41 08/17/16 05:41 Labs: Last Result Calcium 7.7 mg/dL (8.6-10.8) L 08/17/16 05:41 Iron 25 mcg/dL (65-175) L 08/14/16 17:28 % Saturation 7 % (20-55) L 08/14/16 17:28 Transferrin 240 mg/dL (174-364) 08/14/16 17:28 Vitamin B12 > 2000 pg/mL (213-816) H 08/14/16 17:28 Folate 16.1 ng/mL (7.0-31.4) 08/14/16 17:28 Peritoneal Appearance CLEAR (Clear) 08/16/16 08:15 Peritoneal Volume 35.0 mL 08/16/16 08:15 Peritoneal RBC < 0.002 M/mcL (0.000-0.002) 08/16/16 08:15 Periton Tot Nuc Cells 104 TNC/mcL (0-300) 08/16/16 08:15 Periton Band Neuts Test Not Performed 08/16/16 08:15 Periton Lymphocytes % 30.0 % 08/16/16 08:15 Periton Monocytes % Test Not Performed 08/16/16 08:15 Periton Other Cells % 59.0 % 08/16/16 08:15 Stool Occult Blood Negative (Negative) 08/14/16 20:30 Entire Visit Hgb 8.7 g/dL (12.9-16.9) L 08/17/16 05:41 Hct 28.0 % (37.5-50.1) L 08/17/16 05:41 PT 18.5 Seconds (9.4-12.1) H 08/16/16 11:39 Total Bilirubin 1.1 mg/dL (0.2-1.2) 08/17/16 05:41 AST 36 Units/L (5-34) H 08/17/16 05:41 ALT 15 Units/L (0-55) 08/17/16 05:41 Lipase 37 Units/L (8-78) 08/15/16 01:08 Folate 16.1 ng/mL (7.0-31.4) 08/14/16 17:28 - ABG ABG results: PT/INR, D-dimer PT 18.5 Seconds (9.4-12.1) H 08/16/16 11:39 - Impressions Impressions Paracentesis Ultrasound 08/16/16 00:00 IMPRESSION: Successful ultrasound guided paracentesis. D/ / Ryan Hooker MD / Ryan Hooker MD Interpreting Provider: Ryan Hooker MD Abdomen Ultrasound 08/16/16 09:00 IMPRESSION: 1. Hepatomegaly with steatosis. Smooth liver capsule. 2. Nonspecific gallbladder wall thickening measuring up to 8 mm, likely related to underlying liver disease versus volume status. No cholelithiasis. 3. Small volume ascites. D/ / 08/16/2016 11:39:40 Ramona Case MD / [email or web address] Interpreting Provider: Ramona Case MD - VTE Documentation of Mechanical Device: Intermittent pneumatic compression device Consult Discharge Plan - Plan Referrals: Estella Arteaga CNP [Primary Care Provider] - 08/23/16 1:15 pm (Please follow up on Aug.23 at 1:15pm. Your appointment for has been cancelled and combined with your Aug.23 appointment. If you have any questions please call your PCP at any time. Thank you! ) <Collins Ford - Last Filed: 08/17/16 11:54> Time of Encounter: 11:00 - Time Spent With Patient Total time spent is greater than 50% in coordination of care (as documented) at patient's floor/unit and/or counseling patient: - Constitutional Vitals: Temp Pulse Resp BP Pulse Ox 98.1 F 98 18 102/69 92 L 08/17/16 11:17 08/17/16 11:17 08/17/16 11:17 08/17/16 11:17 08/17/16 11:17 Results - Labs CBC & Chem 7: 08/17/16 05:41 08/17/16 05:41 Labs: Last Result Calcium 7.7 mg/dL (8.6-10.8) L 08/17/16 05:41 Iron 25 mcg/dL (65-175) L 08/14/16 17:28 % Saturation 7 % (20-55) L 08/14/16 17:28 Transferrin 240 mg/dL (174-364) 08/14/16 17:28 Vitamin B12 > 2000 pg/mL (213-816) H 08/14/16 17:28 Folate 16.1 ng/mL (7.0-31.4) 08/14/16 17:28 Peritoneal Appearance CLEAR (Clear) 08/16/16 08:15 Peritoneal Volume 35.0 mL 08/16/16 08:15 Peritoneal RBC < 0.002 M/mcL (0.000-0.002) 08/16/16 08:15 Periton Tot Nuc Cells 104 TNC/mcL (0-300) 08/16/16 08:15 Periton Band Neuts Test Not Performed 08/16/16 08:15 Periton Lymphocytes % 30.0 % 08/16/16 08:15 Periton Monocytes % Test Not Performed 08/16/16 08:15 Periton Other Cells % 59.0 % 08/16/16 08:15 Peritoneal Albumin 0.6 g/dL (No Ref Range) 08/16/16 08:15 Peritoneal Glucose 99 mg/dL (No Ref Range) 08/16/16 08:15 Stool Occult Blood Negative (Negative) 08/14/16 20:30 Entire Visit Hgb 8.7 g/dL (12.9-16.9) L 08/17/16 05:41 Hct 28.0 % (37.5-50.1) L 08/17/16 05:41 PT 18.5 Seconds (9.4-12.1) H 08/16/16 11:39 Total Bilirubin 1.1 mg/dL (0.2-1.2) 08/17/16 05:41 AST 36 Units/L (5-34) H 08/17/16 05:41 ALT 15 Units/L (0-55) 08/17/16 05:41 Lipase 37 Units/L (8-78) 08/15/16 01:08 Folate 16.1 ng/mL (7.0-31.4) 08/14/16 17:28 - ABG ABG results: PT/INR, D-dimer PT 18.5 Seconds (9.4-12.1) H 08/16/16 11:39 - Impressions Impressions Paracentesis Ultrasound 08/16/16 00:00 IMPRESSION: Successful ultrasound guided paracentesis. D/ / Ryan Hooker MD / Ryan Hooker MD Interpreting Provider: Ryan Hooker MD Abdomen Ultrasound 08/16/16 09:00 IMPRESSION: 1. Hepatomegaly with steatosis. Smooth liver capsule. 2. Nonspecific gallbladder wall thickening measuring up to 8 mm, likely related to underlying liver disease versus volume status. No cholelithiasis. 3. Small volume ascites. D/ / 08/16/2016 11:39:40 Ramona Case MD / loly Interpreting Provider: Ramona Case MD - Attending Attestation I examined this patient and my medical decision-making was reviewed with the CELL STRIPPER/PA/Advanced Practice Nurse/Resident Physician. I agree with the documented findings, disposition and treatment plan as described except to the extent set forth below. Repeat colon 3 years
[2016-08-17] MEDS: Folic Acid 1 MG TABLET PO SCH (09:16)
[2016-08-17] MEDS: Thiamine (B-1) 100 MG TABLET PO SCH (09:16)
[2016-08-17] MEDS: Sennosides/Docusate Sodium TABLET PO SCH ×2 (09:17→20:12)
[2016-08-17] MEDS: Gabapentin 100 MG CAPSULE PO SCH ×2 (09:17→20:12)
[2016-08-17] MEDS: Iron Sucrose Complex 200 MG in 0.9 % Sodium Chloride 100 ML IVPB SCH (09:17)
[2016-08-17] MEDS: Nicotine 21 MG PATCH.TD24 TD SCH (09:17)
[2016-08-17] MEDS: Vitamin B Complex/Vit C/Vit E 1 EACH TABLET PO SCH (09:17)
[2016-08-17] MEDS: Potassium Chloride Elixir 20 MEQ/15 ML UDC PO SCH ×2 (09:19→20:12)
[2016-08-17] MEDS: Pantoprazole 40 MG VIAL IVP SCH (09:19)
[2016-08-17] MEDS ORDERED: Magnesium Sulfate 1 GM in D5% in Water 100 ML IVPB ONE (11:24)
[2016-08-17 12:02] LABS: Hepatitis A Antibody IgM Nonreactive (Nonreactive); Hepatitis B Core IgM Nonreactive (Nonreactive); Hepatitis B Surface Antigen Nonreactive (Nonreactive); Hepatitis C Virus Antibody Nonreactive (Nonreactive)
[2016-08-17 13:17] LABS: Hematocrit 28.8 % (37.5-50.1); Hemoglobin 8.8 g/dL (12.9-16.9)
--- NOTE | 2016-08-17 16:26 | Discharge Summary ---
Date of Encounter: 08/17/16 Time of Encounter: 16:13 - Discharge Diagnosis (1) Blood loss anemia Priority: Primary Status: Acute (2) GI bleed Priority: Primary Status: Acute Qualifiers: GI bleed type/associated pathology: gastritis Gastritis type: unspecified gastritis Qualified Code(s): K29.71 - Gastritis, unspecified, with bleeding (3) Ascites Priority: Primary Status: Acute Qualifiers: Ascites type: other type Qualified Code(s): R18.8 - Other ascites (4) Hypokalemia Priority: Primary Status: Acute (5) Alcohol abuse Priority: Secondary Status: Chronic - Discharge Medications Prescriptions: Nicotine Patch [Nicoderm] 21 mg TD DAILY #30 patch.td24 Sennosides/Docusate Sodium [Senna Plus] 2 each PO BID #120 tablet Spironolactone [Aldactone] 50 mg PO DAILY #30 tablet Thiamine (B-1) [Vitamin B-1] 50 mg PO DAILY #30 tablet Home Medications: Albuterol Sulfate [Albuterol Inhaler] 2 puff IH Q4H PRN 08/14/16 [History] Atorvastatin [Lipitor] 10 mg PO HS 08/14/16 [History] Cyanocobalamin (Vitamin B-12) [Vitamin B-12] 500 mcg PO DAILY 08/14/16 [History] Folic Acid 1 mg PO DAILY 08/14/16 [History] Gabapentin [Neurontin] 200 mg PO BID 08/14/16 [History] Multivitamin [Multi-Day Vitamins] 1 each PO DAILY 08/14/16 [History] Potassium Chloride [K-Tab ER] 20 meq PO BID 08/14/16 [History] Furosemide [Lasix] 20 mg PO DAILY #30 tablet 08/17/16 [Rx] Nicotine Patch [Nicoderm] 21 mg TD DAILY #30 patch.td24 08/17/16 [Rx] Sennosides/Docusate Sodium [Senna Plus] 2 each PO BID #120 tablet 08/17/16 [Rx] Spironolactone [Aldactone] 50 mg PO DAILY #30 tablet 08/17/16 [Rx] Thiamine (B-1) [Vitamin B-1] 50 mg PO DAILY #30 tablet 08/17/16 [Rx] Vitamin B Complex/Vit C/Vit E [Stresstab] 1 each PO DAILY #30 tablet 08/17/16 [ Rx] Allergies/Adverse Reactions: Allergies No Known Allergies Allergy (Verified 08/14/16 16:45) Procedures/tests Complete & Pending: Procedures Performed prior 72 hours Category Date Time Status abdominal ultrasound - limited [US abdomen limited] [US Exams 08/16/16 09:00 Completed ] Routine IR paracentesis ultrasound [IR] Routine IR 08/16/16 Completed Date of admission: 08/14/16 20:25 Primary care physician: Estella Arteaga CNP Consults: 08/14/16 21:17 Consult to Nutrition [CONS] Routine Comment: Consulting Provider: NUTRITION Reason for Dietary Consult: MST Score 08/15/16 00:14 Consult to Dial Polisher [CONS] Routine Reason for SW Consult: extensive history of alcohol use. Rehab information needed. 08/15/16 10:49 Consult to Gastroenterology [CONS] Routine Consulting Provider: [facility] [place] Reason for Consult: please evaluate for severe anemia in this patient who is a chronic alcoholic , never has seen GI before. thank you Call Completed: Yes 08/15/16 15:19 Consult to Interventional Radiology [CONS] Routine Consulting Provider: Radiology Interventional [place] Reason for Consult: paracentesis in AM of 08/16/16. Send fluid for celll studies and cytology. Call Completed: Yes - Patient Status Disposition: Home, Self-Care Condition: Good Functional capacity at discharge: independent ambulation Overall status at discharge: patient is progressing back to baseline - Discharge Instructions Follow Up With: Estella Arteaga CNP [Primary Care Provider] - 08/23/16 1:15 pm (Please follow up on Aug.23 at 1:15pm. Your appointment for has been cancelled and combined with your Aug.23 appointment. If you have any questions please call your PCP at any time. Thank you! ) Hospital course: Mr. El is a 46 year old male - Time Spent with Patient Total time spent providing and/or coordinating discharge services: - Constitutional Vitals: Temp Pulse Resp BP Pulse Ox 98.1 F 98 18 102/69 92 L 08/17/16 11:17 08/17/16 11:17 08/17/16 11:17 08/17/16 11:17 08/17/16 11:17 General appearance: Present: cooperative, A&O X 3, pleasant, no acute distress, answers questions appropriately - VTE Documentation of Mechanical Device: Graduated compression elastic hosiery
--- NOTE | 2016-08-17 16:32 | Internal Med Progress Note ---
Date of Encounter: 08/17/16 Time of Encounter: 11:45 - Assessment and plan (1) Leukocytosis Current Visit: Yes Status: Acute Assessment and plan: WBC increased up to 18. check UA, CXR and blood cultures. peritoneal fluid culture is negative so far. WBC in peritoneal fluid was negative for SBP. given ascites in the setting of GI bleed, I will start ceftriaxone. Qualifiers: Leukocytosis type: unspecified Qualified Code(s): D72.829 - Elevated white blood cell count, unspecified (2) Blood loss anemia Current Visit: Yes Status: Acute Assessment and plan: Acute blood loss anemia. Patient presented with blood in his stools and a hemoglobin of 5.5. He was transfused 4 units of packed red blood cells (last unit 08/15). Hgb is trending down to 8.8. hemodynamically stable. continue to monitor. (3) GI bleed Current Visit: Yes Status: Acute Assessment and plan: unclear etiology of bleeding. Patient underwent EGD showing gastritis and erythematous doing adenopathy. Biopsies taken. Colonoscopy revealed nonbleeding polyps and internal hemorrhoids. No signs of external bleeding. We will continue to monitor hemoglobin. Qualifiers: GI bleed type/associated pathology: gastritis Gastritis type: unspecified gastritis Qualified Code(s): K29.71 - Gastritis, unspecified, with bleeding (4) Ascites Current Visit: Yes Status: Acute Assessment and plan: 08/16: Patient underwent paracentesis with removal of 3.1 L of ascitic fluid. No SBP. us liver showed hepatic steatosis. check doppler of liver. Awaiting cytology, culture and albumin levels in ascitic fluid. started on spironolactone and lasix. Qualifiers: Ascites type: other type Qualified Code(s): R18.8 - Other ascites (5) Hypokalemia Current Visit: Yes Status: Acute Assessment and plan: Corrected. (6) Alcohol abuse Current Visit: Yes Status: Chronic Assessment and plan: Continue CIWA protocol. Patient is agreeable to quit alcohol use. We will provide him with information for detox centers. (7) Hypomagnesemia Current Visit: Yes Status: Acute Assessment and plan: corrected - Subjective Interval history: patient denies any bleeding. no abdominal pain. no urinary complains. no diarrhea. - Constitutional Vitals: Temp Pulse Resp BP Pulse Ox 98.1 F 98 18 102/69 92 L 08/17/16 11:17 08/17/16 11:17 08/17/16 11:17 08/17/16 11:17 08/17/16 11:17 General appearance: Present: cooperative, A&O X 3, pleasant, no acute distress, answers questions appropriately - Eye Eye exam: Present: PERRL, sclera anicteric - Neck Neck exam general surgery: Present: supple, trachea midline. Absent: lymphadenopathy - Respiratory Respiratory exam: Present: CTAB - Cardiovascular Cardiovascular exam: Present: RRR - GI/Abdominal GI/Abdominal exam: Present: normal bowel sounds, soft. Absent: distended, tenderness - Extremities Exam Extremities exam: Present: pedal edema - Back Exam Back exam: Absent: CVA tenderness (L), CVA tenderness (R), rash noted - Neurological Exam Neurological exam: Present: alert, oriented X3, no focal deficits. Absent: facial droop, speech deficit - Skin Skin exam: Absent: rash Internal Medicine: Result - Labs CBC & Chem 7: 08/17/16 13:10 08/17/16 05:41 Labs: Short CBC 08/17/16 08/17/16 Range/Units 05:41 13:10 WBC 18.2 H (4.3-11.1) K/mcL Hgb 8.7 L 8.8 L (12.9-16.9) g/dL Hct 28.0 L 28.8 L (37.5-50.1) % Plt Count 403 H (140-400) K/mcL Neutrophils # 13.9 H (1.6-8.9) K/mcL BMP 08/17/16 05:41 Sodium 131 L Potassium 3.7 Chloride 98 Carbon Dioxide 23 BUN 4 L Creatinine 0.78 Glucose 85 Calcium 7.7 L Liver Function 08/17/16 Range/Units 05:41 Total Bilirubin 1.1 (0.2-1.2) mg/dL AST 36 H (5-34) Units/L ALT 15 (0-55) Units/L Alkaline Phosphatase 194 H (38-126) Units/L Albumin 1.7 L (3.5-5.0) g/dL - ABG Interpretation ABG results: PT/INR, D-dimer PT 18.5 Seconds (9.4-12.1) H 08/16/16 11:39 - Impressions Impressions Abdomen Ultrasound 08/16/16 09:00 IMPRESSION: 1. Hepatomegaly with steatosis. Smooth liver capsule. 2. Nonspecific gallbladder wall thickening measuring up to 8 mm, likely related to underlying liver disease versus volume status. No cholelithiasis. 3. Small volume ascites. D/ / 08/16/2016 11:39:40 Ramona Case MD / loly Interpreting Provider: Ramona Case MD - VTE Documentation of Mechanical Device: Graduated compression elastic hosiery Consult Discharge Plan - Plan Referrals: Estella Arteaga CNP [Primary Care Provider] - 08/23/16 1:15 pm (Please follow up on Aug.23 at 1:15pm. Your appointment for has been cancelled and combined with your Aug.23 appointment. If you have any questions please call your PCP at any time. Thank you! ) Prescriptions: Nicotine Patch [Nicoderm] 21 mg TD DAILY #30 patch.td24 Sennosides/Docusate Sodium [Senna Plus] 2 each PO BID #120 tablet Spironolactone [Aldactone] 50 mg PO DAILY #30 tablet Thiamine (B-1) [Vitamin B-1] 50 mg PO DAILY #30 tablet
[2016-08-18 06:30] LABS: Basophils # 0.1 K/mcL (0.0-0.2); Basophils % 0.5 %; Eosinophils # 0.4 K/mcL (0.0-0.6); Eosinophils % 2.8 %; Hematocrit 26.5 % (37.5-50.1); Hemoglobin 8.2 g/dL (12.9-16.9); Immature Granulocytes % 0.5 % (0-4); Lymphocytes # 2.3 K/mcL (0.6-4.6); Lymphocytes % 15.5 %; Mean Corpuscular HGB Conc 30.9 g/dL (31.6-35.5); Mean Corpuscular Hemoglobin 22.6 pg (28.0-33.3); Mean Platelet Volume 9.4 fL (9.4-12.4); Monocytes # 0.8 K/mcL (0.0-1.3); Monocytes % 5.3 %; Platelet Count 336 K/mcL (140-400); Red Blood Count 3.63 M/mcL (4.19-5.50); Red Cell Distribution Width 23.7 % (11.5-14.5); Segmented Neutrophils % 75.4 %
[2016-08-18 06:47] LABS: BUN/Creatinine Ratio 7 (6-26); Calcium 7.6 mg/dL (8.6-10.8); Carbon Dioxide 22 mEq/L (19-29); Chloride 101 mEq/L (98-109); Glucose 94 mg/dL (70-99); Magnesium 1.4 mg/dL (1.6-2.6); Osmolality,Calculated 271 (280-300); Phosphorous 3.7 mg/dL (2.3-4.7); Potassium 3.8 mEq/L (3.5-4.5); Sodium 132 mEq/L (136-145); eGFR For African Americans > 60 (> 60); eGFR For Non-African Americans > 60 (> 60)
[2016-08-18 06:48] LABS: Blood Urea Nitrogen 5 mg/dL (8-26)
[2016-08-18 07:12] LABS: Anisocytosis 2+ (Not Present); Platelet Estimate Normal (Normal); Polychromasia 1+ (Not Present)
[2016-08-18] MEDS ORDERED: Magnesium Sulfate 2 GM in D5% in Water 100 ML IVPB ONE (07:28)
[2016-08-18] MEDS: Potassium Chloride Elixir 20 MEQ/15 ML UDC PO SCH (07:59)
[2016-08-18] MEDS: Gabapentin 100 MG CAPSULE PO SCH (07:59)
[2016-08-18] MEDS: Sennosides/Docusate Sodium TABLET PO SCH (07:59)
[2016-08-18] MEDS: Vitamin B Complex/Vit C/Vit E 1 EACH TABLET PO SCH (07:59)
[2016-08-18] MEDS: Folic Acid 1 MG TABLET PO SCH (07:59)
[2016-08-18] MEDS: Nicotine 21 MG PATCH.TD24 TD SCH (07:59)
[2016-08-18] MEDS: Thiamine (B-1) 100 MG TABLET PO SCH (08:04)
--- NOTE | 2016-08-18 08:28 | Internal Med Progress Note ---
Date of Encounter: 08/18/16 Time of Encounter: 08:00 - Assessment and plan (1) Leukocytosis Current Visit: Yes Status: Acute Assessment and plan: Likely secondary to bacterial bowel translocation in the setting of ascites and GI bleed. Started on IV Ceftriaxone. WBC trending down to 14. stat UA. CXR showed ateectasis. blood cultures pending. WBC in peritoneal fluid was negative for SBP. continue IV ceftriaxone. Qualifiers: Leukocytosis type: unspecified Qualified Code(s): D72.829 - Elevated white blood cell count, unspecified (2) Blood loss anemia Current Visit: Yes Status: Acute Assessment and plan: Acute blood loss anemia. Patient presented with blood in his stools and a hemoglobin of 5.5. He was transfused 4 units of packed red blood cells (last unit 08/15). Hgb is trending down to 8.2. hemodynamically stable. repeat H/H at 2pm. (3) GI bleed Current Visit: Yes Status: Acute Assessment and plan: unclear etiology of bleeding. Patient underwent EGD showing gastritis and erythematous duodenopathy. Biopsies taken. Colonoscopy revealed nonbleeding polyps and internal hemorrhoids. No signs of external bleeding. We will continue to monitor hemoglobin. Qualifiers: GI bleed type/associated pathology: gastritis Gastritis type: unspecified gastritis Qualified Code(s): K29.71 - Gastritis, unspecified, with bleeding (4) Ascites Current Visit: Yes Status: Acute Assessment and plan: SAAG consistent with portal hypertension (1.1). likely etiology is alcoholic cirrhosis. 08/16: Patient underwent paracentesis with removal of 3.1 L of ascitic fluid. No SBP. us liver showed hepatic steatosis. doppler is pending. continue spironolactone and lasix prn. start nadolol. Awaiting cytology. Qualifiers: Ascites type: other type Qualified Code(s): R18.8 - Other ascites (5) Hypomagnesemia Current Visit: Yes Status: Acute Assessment and plan: repleted. start oral supplementation. (6) Hypokalemia Current Visit: Yes Status: Acute Assessment and plan: Corrected. (7) Alcohol abuse Current Visit: Yes Status: Chronic Assessment and plan: Continue CIWA protocol. Patient is agreeable to quit alcohol use. We will provide him with information for detox centers. - Subjective Interval history: patient has no complaints. he denies any bleeding, abdominal pain, urinary complains or diarrhea. - Constitutional Vitals: Temp Pulse Resp BP Pulse Ox 98.1 F 90 16 95/61 91 L 08/18/16 08:14 08/18/16 08:14 08/18/16 08:14 08/18/16 08:14 08/18/16 08:14 General appearance: Present: cooperative, A&O X 3, pleasant, no acute distress, answers questions appropriately - Eye Eye exam: Present: PERRL, sclera anicteric - Neck Neck exam general surgery: Present: supple, trachea midline. Absent: lymphadenopathy - Respiratory Respiratory exam: Present: CTAB - Cardiovascular Cardiovascular exam: Present: RRR. Absent: systolic murmur - GI/Abdominal GI/Abdominal exam: Present: distended, normal bowel sounds, soft. Absent: tenderness, no peritoneal signs - Extremities Exam Extremities exam: Present: pedal edema (mild swelliing in extremities) - Back Exam Back exam: Absent: CVA tenderness (L), CVA tenderness (R) - Neurological Exam Neurological exam: Present: alert, oriented X3. Absent: facial droop, speech deficit Internal Medicine: Result - Labs CBC & Chem 7: 08/18/16 06:14 08/18/16 06:14 Labs: Short CBC 08/17/16 08/18/16 Range/Units 13:10 06:14 WBC 14.6 H (4.3-11.1) K/mcL Hgb 8.8 L 8.2 L (12.9-16.9) g/dL Hct 28.8 L 26.5 L (37.5-50.1) % Plt Count 336 (140-400) K/mcL Neutrophils # 11.0 H (1.6-8.9) K/mcL BMP 08/18/16 06:14 Sodium 132 L Potassium 3.8 Chloride 101 Carbon Dioxide 22 BUN 5 L Creatinine 0.75 Glucose 94 Calcium 7.6 L - ABG Interpretation ABG results: PT/INR, D-dimer PT 18.5 Seconds (9.4-12.1) H 08/16/16 11:39 - Impressions Impressions Abdomen Ultrasound 08/16/16 09:00 IMPRESSION: 1. Hepatomegaly with steatosis. Smooth liver capsule. 2. Nonspecific gallbladder wall thickening measuring up to 8 mm, likely related to underlying liver disease versus volume status. No cholelithiasis. 3. Small volume ascites. D/ / 08/16/2016 11:39:40 Ramona Case MD / loly Interpreting Provider: Ramona Case MD Chest X-Ray 08/17/16 16:31 IMPRESSION: Small right pleural effusion. Left basilar opacity. Appearance is somewhat bandlike and may represent atelectasis. D/ / Chelsie Fowler MD / Chelsie Fowler MD Interpreting Provider: Chelsie Fowler MD - VTE Documentation of Mechanical Device: Intermittent pneumatic compression device Consult Discharge Plan - Plan Referrals: Estella Arteaga CNP [Primary Care Provider] - 08/23/16 1:15 pm (Please follow up on Aug.23 at 1:15pm. Your appointment for has been cancelled and combined with your Aug.23 appointment. If you have any questions please call your PCP at any time. Thank you! ) Prescriptions: Nicotine Patch [Nicoderm] 21 mg TD DAILY #30 patch.td24 Sennosides/Docusate Sodium [Senna Plus] 2 each PO BID #120 tablet Spironolactone [Aldactone] 50 mg PO DAILY #30 tablet Thiamine (B-1) [Vitamin B-1] 50 mg PO DAILY #30 tablet
[2016-08-18] MEDS: Iron Sucrose Complex 200 MG in 0.9 % Sodium Chloride 100 ML IVPB SCH (10:31)
[2016-08-18 10:58] LABS: AFP Tumor Marker Non-Pregnant 3 ng/mL (0-9); Alpha-1-Antitrypsin 238 mg/dL (90-200); Ceruloplasmin 30 mg/dL (17-54)
[2016-08-18 11:08] LABS: ANA IgG by ELISA NONE DETECTED (None Detected)
[2016-08-18 11:09] LABS: F-Actin (sm muscle) Ab IgG 16 Units (0-19)
[2016-08-18 15:02] LABS: Hematocrit 28.7 % (37.5-50.1); Hemoglobin 8.7 g/dL (12.9-16.9)
[2016-08-18 16:24] VITALS: BP 109/74
--- NOTE | 2016-08-18 17:39 | Discharge Summary ---
Date of Encounter: 08/18/16 Time of Encounter: 17:00 - Discharge Diagnosis (1) Leukocytosis Priority: Primary Status: Acute Qualifiers: Leukocytosis type: unspecified Qualified Code(s): D72.829 - Elevated white blood cell count, unspecified (2) Blood loss anemia Priority: Primary Status: Acute (3) GI bleed Priority: Primary Status: Acute Qualifiers: GI bleed type/associated pathology: gastritis Gastritis type: unspecified gastritis Qualified Code(s): K29.71 - Gastritis, unspecified, with bleeding (4) Ascites Priority: Primary Status: Acute Qualifiers: Ascites type: other type Qualified Code(s): R18.8 - Other ascites (5) Hypomagnesemia Priority: Primary Status: Acute (6) Hypokalemia Priority: Primary Status: Acute (7) Alcohol abuse Priority: Secondary Status: Chronic - Discharge Medications Prescriptions: Atorvastatin [Lipitor] 10 mg PO HS #30 tablet Ciprofloxacin [Cipro] 500 mg PO BID 5 Days Furosemide [Lasix] 20 mg PO DAILY PRN #30 tablet PRN Reason: LE edema Magnesium Oxide [Mag-Ox] 400 mg PO BID #60 tablet Nicotine Patch [Nicoderm] 21 mg TD DAILY #30 patch.td24 Omeprazole [PriLOSEC] 20 mg PO BIDAC #60 capsule. Sennosides/Docusate Sodium [Senna Plus] 2 each PO BID #120 tablet Spironolactone [Aldactone] 50 mg PO DAILY #30 tablet Thiamine (B-1) [Vitamin B-1] 50 mg PO DAILY #30 tablet Vitamin B Complex/Vit C/Vit E [Stresstab] 1 each PO DAILY #30 tablet Home Medications: Albuterol Sulfate [Albuterol Inhaler] 2 puff IH Q4H PRN 08/14/16 [History] Cyanocobalamin (Vitamin B-12) [Vitamin B-12] 500 mcg PO DAILY 08/14/16 [History] Folic Acid 1 mg PO DAILY 08/14/16 [History] Gabapentin [Neurontin] 200 mg PO BID 08/14/16 [History] Multivitamin [Multi-Day Vitamins] 1 each PO DAILY 08/14/16 [History] Potassium Chloride [K-Tab ER] 20 meq PO BID 08/14/16 [History] Nicotine Patch [Nicoderm] 21 mg TD DAILY #30 patch.td24 08/17/16 [Rx] Atorvastatin [Lipitor] 10 mg PO HS #30 tablet 08/18/16 [Rx] Ciprofloxacin [Cipro] 500 mg PO BID 5 Days 08/18/16 [Rx] Furosemide [Lasix] 20 mg PO DAILY PRN #30 tablet 08/18/16 [Rx] Magnesium Oxide [Mag-Ox] 400 mg PO BID #60 tablet 08/18/16 [Rx] Omeprazole [PriLOSEC] 20 mg PO BIDAC #60 capsule. 08/18/16 [Rx] Sennosides/Docusate Sodium [Senna Plus] 2 each PO BID #120 tablet 08/18/16 [Rx] Spironolactone [Aldactone] 50 mg PO DAILY #30 tablet 08/18/16 [Rx] Thiamine (B-1) [Vitamin B-1] 50 mg PO DAILY #30 tablet 08/18/16 [Rx] Vitamin B Complex/Vit C/Vit E [Stresstab] 1 each PO DAILY #30 tablet 08/18/16 [ Rx] Allergies/Adverse Reactions: Allergies No Known Allergies Allergy (Verified 08/14/16 16:45) Procedures/tests Complete & Pending: Procedures Performed prior 72 hours Category Date Time Status abdominal ultrasound - limited [US abdomen limited] [US Exams 08/16/16 09:00 Completed ] Routine IR paracentesis ultrasound [IR] Routine IR 08/16/16 Completed US abd pelvis doppler [US] Routine Ultrasound 08/18/16 09:00 Completed Date of admission: 08/14/16 20:25 Primary care physician: Estella Arteaga CNP Consults: 08/14/16 21:17 Consult to Nutrition [CONS] Routine Comment: Consulting Provider: NUTRITION Reason for Dietary Consult: MST Score 08/15/16 00:14 Consult to Judge [CONS] Routine Reason for SW Consult: extensive history of alcohol use. Rehab information needed. 08/15/16 10:49 Consult to Gastroenterology [CONS] Routine Consulting Provider: [facility] [place] Reason for Consult: please evaluate for severe anemia in this patient who is a chronic alcoholic , never has seen GI before. thank you Call Completed: Yes 08/15/16 15:19 Consult to Interventional Radiology [CONS] Routine Consulting Provider: Radiology Interventional [facility] Reason for Consult: paracentesis in AM of 08/16/16. Send fluid for celll studies and cytology. Call Completed: Yes - Patient Status Disposition: Home, Self-Care Condition: Good Functional capacity at discharge: independent ambulation Overall status at discharge: patient is progressing back to baseline - Discharge Instructions Follow Up With: Estella Arteaga CNP [Primary Care Provider] - 08/23/16 1:15 pm (Please follow up on Aug.23 at 1:15pm. Your appointment for has been cancelled and combined with your Aug.23 appointment. If you have any questions please call your PCP at any time. Thank you! ) Collins Pandey MD [Partnered Physician] - Additional Instructions: quit alcohol. quit smoking. take all your medications. no more than 1.8L of fluid intake per day. - Diet and Activity Activity: resume usual activities as tolerated Diet: low salt diet (fluid restriction 1.8 L/day), other Hospital course: Mr. El is a 46 year old male with past medical history of alcoholism, HTN , HLD and tobacco abuse who was sent to ED after outpatient hgb was 5.5. He was transfused 4 units of packed red blood cells (last unit 08/15). No active bleeding was found in EGD/colonoscopy. Patient underwent EGD showing gastritis and erythematous duodenopathy. Biopsies taken. Colonoscopy revealed non-bleeding polyps and internal hemorrhoids. He was watched carefully, hgb remained in the 8 range and he was hemodynamically stable. He was ambulating, eating well and no signs of external bleeding. Home dose plavix was held due to GI bleed. He was also found with signs of liver cirrhosis, including ascites. He underwent paracentesis with removal of 3.1 L of ascitic fluid. No SBP. SAAG consistent with portal hypertension (1.1). likely etiology is alcoholic cirrhosis. us liver showed hepatic steatosis. doppler showed no DVT. he was started on spironolactone and lasix prn. Awaiting cytology. He developed leukocytosis likely secondary to bacterial bowel translocation in the setting of ascites and GI bleed. He was started on IV Ceftriaxone and WBC trended down to 14. CXR showed atelectasis. viral hepatitis was negative. PLAN: cipro for 5 days due to ascites and GI bleed. f/u with PCP next week for alcohol and smoking cessation, HTN. May consider resuming plavix in 2 weeks if clinically necessary. f/u with dr pandey for suspected liver cirrhosis. - Time Spent with Patient Total time spent providing and/or coordinating discharge services: - Constitutional Vitals: Temp Pulse Resp BP Pulse Ox 98.4 F 95 16 109/74 96 08/18/16 16:23 08/18/16 16:23 08/18/16 16:23 08/18/16 16:23 08/18/16 16:23 General appearance: Present: cooperative, A&O X 3, pleasant, no acute distress, answers questions appropriately - VTE Documentation of Mechanical Device: Intermittent pneumatic compression device
[2016-08-18] MEDS ORDERED: Magnesium Oxide 400 MG TABLET PO SCH (18:00)
[2016-08-18] MEDS ORDERED: Lidocaine -MPF 2% 5 ML VIAL INFILT ONE (18:52)
[2016-08-18] MEDS ORDERED: *HR* Propofol 200 MG/20 ML VIAL IVP ONE (18:52)
[2016-08-20 07:56] LABS: Myeloperoxidase Ab 5 AU/mL (0-19); Serine Protease-3 Antibody 1 AU/mL (0-19)
== END 2016-08-18 18:53 | disposition home or self-care (01) | DRG 229 ==
LOC: EMEROO 16:43 → 2ANU 20:25 → SUATTDRO 20:25 → 2ANU 20:36
PROVIDERS: ADMIT Internal Medicine; ATTEND Internal Medicine
PROC: ENDOEBX (2016-08-16 13:00)